=== PATIENT | female | born 1985 | race Two or more races ===

== ENCOUNTER → 2020-01-04 | Outpatient (REF) | payer OTHER | LOC: M SFHCLERA 20:17 | PROVIDERS: ATTEND Physician Assistant | DX: R31.9 Hematuria, unspecified (principal) | CPT/HCPCS: 81002; 81025; 87086; G0463 ==

== ENCOUNTER → 2020-01-16 | Outpatient (REF) | payer OTHER | LOC: M SFHCLERA 15:12 | PROVIDERS: ATTEND Nurse Practitioner Family | DX: R11.2 Nausea with vomiting, unspecified (principal) ==

== ENCOUNTER → 2020-01-27 | Outpatient (CLI) | payer OTHER, SELFPAY ==
[2020-01-27 13:21] LABS: HEMATOCRIT 38.6 % (36.0-47.0); HEMOGLOBIN 12.9 g/dl (12.0-15.5); MEAN CORPUSCULAR HEMOGLOBIN 28.2 pg (27.0-33.0); MEAN CORPUSCULAR HGB CONC 33.4 g/dl (32.0-36.5); MEAN CORPUSCULAR VOLUME 84.5 fl (80.0-96.0); PLATELET COUNT, AUTOMATED 331 10^3/uL (150-450); RED BLOOD COUNT 4.57 10^6/uL (4.00-5.40); WHITE BLOOD COUNT 7.8 10^3/uL (4.0-10.0)
[2020-01-27 13:37] LABS: FREE T4 1.05 NG/DL (0.76-1.46); THYROID STIMULATING HORMONE 0.796 uIU/ML (0.358-3.740)
[2020-01-27 15:24] LABS: CHLAMYDIA DNA AMPLIFICATION NEGATIVE (NEGATIVE); GC DNA AMPLIFICATION NEGATIVE (NEGATIVE)
[2020-01-28 08:25] LABS: RUBELLA IgG QUALITATIVE IMMUNE (IMMUNE)
[2020-01-28 08:26] LABS: HEPATITIS B SURFACE ANTIGEN NEGATIVE (NEGATIVE)
[2020-01-28 08:53] LABS: HEPATITIS C VIRUS ABY INDEX < 0.0 INDEX (<0.8)
[2020-01-28 08:54] LABS: HIV 1&2 SCREEN CENTAUR NEGATIVE (NEGATIVE)
== END ==
LOC: M PLALAB 11:14
PROVIDERS: ATTEND Advanced Practice Midwife
DX: Z34.91 Encounter for supervision of normal pregnancy, unspecified, first trimester (principal); Z3A.00 Weeks of gestation of pregnancy not specified

== ENCOUNTER 2020-03-15 19:31 | Emergency (ER) | payer OTHER, SELFPAY ==
[~2020-03-15] VITALS: Ht 157.5 cm; Wt 54.8 kg
[2020-03-15] MEDS ORDERED: ONDA-83 PO (19:46)
[2020-03-15] MEDS ORDERED: OMEP-221 PO (19:46)
[2020-03-15] MEDS ORDERED: PREN1TAB14 PO (19:46)
[2020-03-15] MEDS ORDERED: NS 1,000 ML IV ONE (20:00)
[2020-03-15 20:27] LABS: BASO # 0.1 10^3/uL (0.0-0.2); BASO % 0.6 % (0.0-1.0); EOS # 0.1 10^3/uL (0.0-0.5); EOS % 1.3 % (0.0-3.0); HEMATOCRIT 36.4 % (36.0-47.0); HEMOGLOBIN 12.4 g/dl (12.0-15.5); LYMPH # 3.2 10^3/uL (1.5-5.0); LYMPH % 30.6 % (24.0-44.0); MEAN CORPUSCULAR HEMOGLOBIN 28.8 pg (27.0-33.0); MEAN CORPUSCULAR HGB CONC 34.1 g/dl (32.0-36.5); MEAN CORPUSCULAR VOLUME 84.7 fl (80.0-96.0); MONO # 0.7 10^3/uL (0.0-0.8); MONO % 6.7 % (0.0-5.0); NEUTROPHILS # 6.4 10^3/uL (1.5-8.5); NEUTROPHILS % 60.4 % (36.0-66.0); PLATELET COUNT, AUTOMATED 326 10^3/uL (150-450); WHITE BLOOD COUNT 10.5 10^3/uL (4.0-10.0)
[2020-03-15] MEDS ORDERED: METOCLOPRAMIDE INJ 10MG/2ML VIAL (J2765 PER 1) IV ONE (20:45)
[2020-03-15 20:58] LABS: ALBUMIN 3.4 GM/DL (3.2-5.2); ALT/SGPT 14 U/L (12-78); BILIRUBIN,DIRECT < 0.1 MG/DL (0.0-0.2); BILIRUBIN,TOTAL 0.4 MG/DL (0.2-1.0); LIPASE 190 U/L (73-393); TOTAL PROTEIN 7.3 GM/DL (6.4-8.2)
[2020-03-15] MEDS ORDERED: DICL10TA PO (21:57)
[2020-03-15 22:01] VITALS: BP 110/57
--- NOTE | 2020-03-15 22:46 | REPVR ---
PROCEDURE INFORMATION: Exam: US Retroperitoneal Limited, Kidneys Exam date and time: 03/15/2020 10:02 PM Age: 34 years old Clinical indication: Abdominal pain; ; Additional info: Hematuria, nausea, vomiting TECHNIQUE: Imaging protocol: Real-time ultrasound of the retroperitoneum with image documentation. Examination was focused on the kidneys. COMPARISON: No relevant prior studies available. FINDINGS: Right kidney is grossly normal in size, echogenicity and contour, measuring 10.1 x 3.7 by 4.4 cm. There are no focal renal abnormalities. No evidence of hydronephrosis. The left kidney is grossly normal in size, echogenicity and contour, measuring 11.0 x 4.5 by 4.6 cm. There are no focal renal abnormalities. No evidence of hydronephrosis. Urinary bladder is incompletely distended. No large intrinsic or extrinsic filling defects within the urinary bladder. IMPRESSION: Unremarkable renal ultrasound. No focal renal abnormalities or hydronephrosis. Electronically signed by: Thaddeus Rob On 03/15/2020 22:46:12 PM
== END 2020-03-15 22:10 | disposition home or self-care (01) ==
LOC: M ED 19:31
DX: O21.9 Vomiting of pregnancy, unspecified (principal); Z3A.15 15 weeks gestation of pregnancy; O99.611 Diseases of the digestive system complicating pregnancy, first trimester; K21.9 Gastro-esophageal reflux disease without esophagitis; Z79.899 Other long term (current) drug therapy
CPT/HCPCS: 76775; 80047; 80076; 81001; 83690; 85025; 96361; 96374; 99284; J2765

== ENCOUNTER 2020-07-26 22:30 | Inpatient (IN) | payer OTHER ==
[~2020-07-26] VITALS: Ht 157.5 cm; Wt 65.7 kg
[~2020-07-26 22:30] MED LIST: DICL10TA PO; OMEP-221 PO; ONDA-83 PO; PREN1TAB14 PO
[2020-07-26 22:56] VITALS: BP 139/74
[2020-07-26] MEDS ORDERED: PENICILLIN G POTASSIUM IV 5 MU in D5W MINI-BAG PLUS 100 ML IV STA (23:30)
[2020-07-26] MEDS ORDERED: LACTATED RINGER'S 1000 ML IV STA (23:30)
[2020-07-26] MEDS ORDERED: LR 1,000 ML IV SCH ×2 (23:30)
[2020-07-26] MEDS ORDERED: MOM 30ML SUSPENSION UDC PO PRN (23:45)
[2020-07-26] MEDS ORDERED: SIMETHICONE 80 MG CHEW TAB PO PRN (23:45)
[2020-07-26] MEDS ORDERED: diphenhydrAMINE 25MG CAP PO PRN (23:45)
[2020-07-26] MEDS ORDERED: BUTORPHANOL 2 MG/ML INJ (J0595) IV PRN (23:45)
[2020-07-26] MEDS ORDERED: CALCIUM CARBONATE 500 MG CHEW U/D PO PRN (23:45)
[2020-07-26] MEDS ORDERED: PROMETHAZINE INJ 25 MG/ML VIAL (J2550) IV PRN (23:45)
[2020-07-26] MEDS ORDERED: ACETAMINOPHEN 500 MG TAB PO PRN (23:45)
[2020-07-26 23:48] LABS: BASO # 0.1 10^3/uL (0.0-0.2); BASO % 0.6 % (0.0-1.0); EOS # 0.1 10^3/uL (0.0-0.5); HEMATOCRIT 36.3 % (36.0-47.0); HEMOGLOBIN 11.6 g/dl (12.0-15.5); LYMPH # 2.4 10^3/uL (1.5-5.0); LYMPH % 26.4 % (24.0-44.0); MEAN CORPUSCULAR HEMOGLOBIN 27.4 pg (27.0-33.0); MEAN CORPUSCULAR VOLUME 85.8 fl (80.0-96.0); MONO # 0.7 10^3/uL (0.0-0.8); NEUTROPHILS # 5.7 10^3/uL (1.5-8.5); NEUTROPHILS % 63.1 % (36.0-66.0); PLATELET COUNT, AUTOMATED 281 10^3/uL (150-450); RED BLOOD COUNT 4.23 10^6/uL (4.00-5.40)
--- NOTE | 2020-07-26 23:54 | HPEPDOC ---
Obstetrical History & Physical General Date of Admission Jul 26, 2020 at 22:49 History of Present Illness Patient is a 35yo at 34.4wks by LMP c/w 1st trimester US. Patient had gush of clear fluid at 2200 and has been leaking since. Some mild cramps intermittently but no strong ctx. No VB. +FM. No headaches or change in vision. Chief Complaint: LOF, pre-term Information Provided By: Patient : 3 Term: 1 Pre-term: 1 Livin Care Care: Good Care Dating Final EDC: Sep 02, 2020 Final EDC by: LMP EGA at Admission: 34.4 Antepartum Course Height (inches): 62 Pre- weight (lbs.): 121 Admission Weight (lbs.): 140 Change in Weight (lbs.): 19 Past Medical History Past Obstetrical History : Past Obstetrical History: Multigravida Type of Delivery: Spontaneous Vaginal Del. 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 Past Medical History Medical History none Surgical History: Denies/None Family History Significant Family History: No pertinent family hx Social History Marital Status: Family situation: Spouse/partner home Psychosocial History: No pertinent psych hx * Smoker: non-smoker Alcohol: Denies Drugs: denies Abuse Violence Screening Have you been hit/kicked/slapp: No Have you been sexually assault: No Allergies Coded Allergies: No Known Allergies (Verified Allergy, Unknown, 03/15/20) Medications Scheduled Doxylamine Succinate/Vit B6 (Diclegis Dr 10-10 mg Tablet) 1 Each Tablet.dr, 2 TAB PO QPM Omeprazole (Omeprazole) 40 Mg Capsule.dr, 40 MG PO DAILY Ondansetron HCl (Ondansetron HCl) 4 Mg Tablet, 4 MG PO PRN Vits96/Iron Fum/Folic ( Tablet) 1 Each Tablet, 1 TAB PO DAILY Physical Examination Physical Examination GENERAL: Alert and oriented times three. BREAST: . ABDOMEN: Gravid and non-tender to touch. FETUS: Is vertex (VTX) by sterile vaginal examination (SVE), fetus is 3000 by Billy. HEART RATE: Regular rate and rhythm. LUNGS: Clear to auscultation (CTA). EXTREMITIES: No edema. Laboratory Data 24H LABS Laboratory Tests 2 07/26/20 23:00: CBC/BMP Urine Culture: No Growth Pertinent Laboratoy Data Blood Type: B+ RBC Antibody Screen: Negative HIV: Negative Hepatitis B: Negative Rapid Plasma Reagin: Nonreactive Rubella: Immune Varicella: Immune Chlamydia/Gonorrhea: Negative Group B Streptococcus: Positive Other Ultrasounds Information Per patient normal anatomy US. Steroid Therapy Steroid Therapy: No Vaginal Examination Dilation: 2cm Effacement: 70% Station: -2 Cervical Consistency: Soft Cervical Position: Middle Presentation: Cephalic presentation Assessment Heart Rate (FHR): 120 Variability: Moderate Accelerations: Positive Decelerations: None Tocometer Contractions: No Multi-drug resistant Organism: No history of MDRO Assessment/Plan Assessment Patient is a 35yo at 34.4wks by LMP c/w 1st trimester US. Admit for PPROM and expect delivery by . No need for delay of delivery due to EGA of 34wks by good dating. Pain management per patient preference, which was discussed with her. I discussed risks of with patient of failure with section, distress, bleeding, infection, , vaginal or perineal or neighboring organ tear. Currently, fetus is reassuring. GBS is positive by urine, will need for antibiotics. Will not augment or induce labor until 4hr completion of first dose of antibiotics. Plan Admit and orient. 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 Diet: clears. Group B Streptococcus (GBS) posititve and needs PCN treatment. Labs and intravenous (IV) per unit protocol. Counseled on Pitocin and induction of labor (IOL)/augmentation. Lactated Ringers (LR): Bolus 500 mL, then at 125 mL/hr. Anticipate normal spontaneous delivery (). C-S or operative delivery as appropriate. Pain management per patient choice. Stefania Ness MD Jul 26, 2020 23:54
[2020-07-27] VITALS (34 sets, daily range): BP systolic 92–131; BP diastolic 52–77
[2020-07-27] MEDS ORDERED: OXYTOCIN DRIP 30 UNITS in IV 1 EA IV SCH ×2 (03:30→10:58)
[2020-07-27] MEDS: PENICILLIN G POTASSIUM IV 2.5 MU in IV 1 EA IV SCH ×2 (04:10→07:24)
[2020-07-27] MEDS ORDERED: FENTANYL 2MCG/ML ROPIVACAINE 0.2% IN 0.9% NACL 100ML IVBAG As Ordered ONE (07:19)
[2020-07-27] MEDS ORDERED: FERROUS SULFATE 325MG TAB PO SCH (09:00)
[2020-07-27] MEDS ORDERED: PRENATAL VITAMINS CHEWABLE TABLET PO SCH (09:00)
[2020-07-27] MEDS ORDERED: ePHEDrine SULFATE 25 MG/5 ML(5MG/ML) SYRINGE IV PRN (09:30)
[2020-07-27] MEDS ORDERED: EPIDURAL COMMENT XX SCH (09:30)
[2020-07-27] MEDS ORDERED: ONDANSETRON 4MG/2ML VIAL IV PRN (09:30)
[2020-07-27] MEDS ORDERED: EPIDURAL/PCA KEYS XX PRN (09:30)
[2020-07-27] MEDS ORDERED: diphenhydrAMINE 50MG/ML VIAL (J1200) IV PRN (09:30)
[2020-07-27] MEDS ORDERED: NALOXONE INJ 0.4MG/1ML VIAL (J2310 PER 1MG) IV PRN (09:30)
[2020-07-27] MEDS ORDERED: REFRIGERATOR IV KEYS XX PRN (09:30)
[2020-07-27] MEDS ORDERED: LACTATED RINGER'S 1000 ML IV PRN (09:30)
[2020-07-27] MEDS ORDERED: FENTANYL/ROPIVACAINE/NACL BAG 100 ML EPIDURAL SCH (09:30)
--- NOTE | 2020-07-27 10:15 | IPNPDOC ---
Obstetrical Progress Note Date of Service Jul 27, 2020 Subjective Patient feeling painful ctx's therefore received epidural for pain control. Patient reporting pelvic pressure after epidural placement. Objective Vital Signs Date Time Temp Pulse Resp B/P (MAP) Pulse Ox O2 Delivery O2 Flow Rate FiO2 07/27/20 08:30 88 104/57 (73) 07/27/20 04:58 97.5 07/26/20 22:56 16 Assessment Heart Rate (FHR): 125 Variability: Moderate Accelerations: Positive Decelerations: None Heart Rate Tracing: Category I Tocometer Contractions: Yes Frequency: regular, every 1-3 min. Duration: greater than 60 seconds Sterile Vaginal Examination Dilation: 8 cm Effacement (%): 100% Station: 0 Cervical Consistency: Soft Cervical Position: Anterior Postion/Presentation: Cephalic presentation Assessment and Plan Status: Reassuring Group B Streptococcus: Positive (has received >2 doses of PCN) Anticipate: Vaginal Delivery Additional Comments 35yo at 34+5wks admitted for PPROM and has now progressed on maternal effort alone to 8/c/0 by RN exam at 0945. FHRT cat I. Plan for expectant . KULWINDER CHAMBERS DO Jul 27, 2020 10:15
[2020-07-27] MEDS ORDERED: DIBUCAINE 1% OINTMENT 30GM TOP PRN (11:00)
[2020-07-27] MEDS ORDERED: ACETAMINOPHEN 500 MG TAB PO PRN (11:00)
[2020-07-27] MEDS ORDERED: DOCUSATE SODIUM 100 MG CAP PO PRN (11:00)
[2020-07-27] MEDS ORDERED: ACETAMINOPHEN TAB 650MG DOSE (2X325MG) PO PRN (11:00)
[2020-07-27] MEDS ORDERED: IBUPROFEN 800 MG TAB PO PRN (11:00)
--- NOTE | 2020-07-27 11:23 | DNPDOC ---
[facility] Delivery Note Delivery Note DATE OF DELIVERY: [id number] PREDELIVERY DIAGNOSIS: 34+5/7 weeks' gestation and labor. POST DELIVERY DIAGNOSIS: Delivered. PROCEDURE: Spontaneous vaginal delivery FILLING HAULER WEAVING: Dr. Kulwinder Chambers ANESTHESIA: Epidural. ESTIMATED BLOOD LOSS: 100 mL. FINDINGS: 5 pound 11 ounce 2594g male , Score 9/9, nuchal cord times 1. DELIVERY SUMMARY: Patient is a 35-year-old 2 now para 1102 who was admitted to labor and delivery for rupture of membranes and subsequently progressed into spontaneous labor. Patient found to be c/c/+2 and ther efore prepped for delivery. Patient coached on pushing effort until spontaneous vaginal delivery. Presentation was OA with restitution to LOT with right shoulder anterior position. Anterior shoulder and body delivered without difficulty. Nuchal cord x1 delivered through. No meconium appreciated. Infant with spontaneous vigorous cry on delivery field therefore placed on maternal abd omen where was dried. Delayed cord clamping allowed for 30 seconds then clamped x2 and cut by FOB. taken to warmer by awaiting NICU team. Pitocin IV bolus initiated. Third stage spontaneous with intact placenta. Fundal massage revealed firm uterine tone and hemostasis. Inspection revealed no lacerations. Patient stable upon my leaving the room. transferred to NICU due to gestational age. EBL 100ml. KULWINDER CHAMBERS DO Jul 27, 2020 11:23
[2020-07-27] MEDS ORDERED: ONDANSETRON 4 MG ORAL DISINTEGRATING TAB PO PRN (13:45)
[2020-07-28 06:00] VITALS: BP 109/71
[2020-07-28] MEDS ORDERED: IBUP80TA PO (10:30)
[2020-07-28] MEDS ORDERED: ACET-683 PO (10:30)
[2020-07-28] MEDS ORDERED: DOCU100C16 PO (10:30)
--- NOTE | 2020-07-28 10:33 | IPNPDOC ---
Progress Note Date of Service: Jul 28, 2020 Day#: 1 Progress Note SUBJECT: Ms. Montgomery is a 35yo s/p at term and vaginal laceration and repair, doing well day # 1. She has been ambulating, voiding spontaneously without issue and tolerating regular diet. Breast feeding without issue. Reports lochia is like a normal period. Patient is ambulating well. Denies any pain. Voiding and stooling without difficulty. OBJECTIVE: VITAL SIGNS: Within normal limits, afebrile. Alert and oriented times three. Breath sounds clear to auscultation. Heart rate: Regular rate and rhythm, no murmurs, rubs or gallops. Abdomen: Fundus firm at U-2. Soft, NTTP. [Minimal] lochia. ASSESSMENT: Ms. Montgomery is a 35yo s/p at term and vaginal laceration and repair, doing well day # 1. Vitals within normal limits, afebrile, hemodynamically stable with no evidence of infection. PLAN: 1. Discharge to home today. 2. Tylenol and Motrin for pain. 3. Encourage breast feeding and ambulation. 4. Desres BTL, scheuling with myself for interval tubal 5. Routine PP visit in 6 weeks in clinic. 6. Discussed return precautions at length. VS, I&O, 24H, [facility] Vital Signs/I&O Vital Signs Date Time Temp Pulse Resp B/P (MAP) Pulse Ox O2 Delivery O2 Flow Rate FiO2 07/28/20 06:00 98.7 75 20 109/71 (84) 99 Room Air I&O- Last 24 Hours up to 6 AM 07/28/20 06:00 Intake Total 2625 ml Output Total 700 ml Balance 1925 ml Laboratory Data 24H LABS Laboratory Tests 2 07/27/20 11:11: Serology Scanned Report Hepatitis B Testing JAJA BEARD DO Jul 28, 2020 10:33
== END 2020-07-28 15:37 | disposition home or self-care (01) | DRG 807 ==
LOC: M LDO 22:30 → M LDI 22:49 → M OBS 07-27 13:39
PROVIDERS: ADMIT Obstetrics & Gynecology; ATTEND Obstetrics & Gynecology
PROC: 10E0XZZ Delivery of Products of Conception, External Approach (ICD-10-PCS; principal; 2020-07-27)
DX: O60.14X0 Preterm labor third trimester with preterm delivery third trimester, not applicable or unspecified (principal); Z37.0 Single live birth; Z3A.34 34 weeks gestation of pregnancy; O42.013 Preterm premature rupture of membranes, onset of labor within 24 hours of rupture, third trimester; O99.824 Streptococcus B carrier state complicating childbirth; Z79.899 Other long term (current) drug therapy; O69.81X0 Labor and delivery complicated by cord around neck, without compression, not applicable or unspecified

== ENCOUNTER 2020-09-01 03:44 | Emergency (ER) | payer OTHER ==
[~2020-09-01] VITALS: Ht 157.5 cm; Wt 57.9 kg
[~2020-09-01 03:44] MED LIST changes: +ACET-683 PO; +DOCU100C16 PO; +IBUP80TA PO
[2020-09-01] MEDS ORDERED: CYCL5TAB PO (03:52)
[2020-09-01 04:26] LABS: URINE PREG TEST NEGATIVE (NEGATIVE)
[2020-09-01] MEDS ORDERED: ACETAMINOPHEN 325 MG TAB As Ordered ONE (04:38)
[2020-09-01] MEDS ORDERED: NS 1,000 ML IV ONE (04:45)
[2020-09-01] MEDS ORDERED: ACETAMINOPHEN 325 MG TAB PO ONE (04:45)
[2020-09-01] MEDS ORDERED: IBUPROFEN 600MG TAB PO ONE (04:45)
[2020-09-01 04:54] LABS: BASO % 0.4 % (0.0-1.0); EOS # 0.2 10^3/uL (0.0-0.5); EOS % 1.5 % (0.0-3.0); HEMATOCRIT 37.9 % (36.0-47.0); HEMOGLOBIN 12.1 g/dl (12.0-15.5); LYMPH # 2.3 10^3/uL (1.5-5.0); LYMPH % 21.1 % (24.0-44.0); MEAN CORPUSCULAR HEMOGLOBIN 26.7 pg (27.0-33.0); MEAN CORPUSCULAR HGB CONC 31.9 g/dl (32.0-36.5); MEAN CORPUSCULAR VOLUME 83.5 fl (80.0-96.0); MONO # 0.7 10^3/uL (0.0-0.8); MONO % 6.5 % (0.0-5.0); NEUTROPHILS # 7.7 10^3/uL (1.5-8.5); PLATELET COUNT, AUTOMATED 439 10^3/uL (150-450); RED BLOOD COUNT 4.54 10^6/uL (4.00-5.40); WHITE BLOOD COUNT 10.9 10^3/uL (4.0-10.0)
[2020-09-01 05:02] LABS: ALT/SGPT 48 U/L (12-78); BILIRUBIN,DIRECT < 0.1 MG/DL (0.0-0.2); BILIRUBIN,TOTAL 0.3 MG/DL (0.2-1.0); BLOOD UREA NITROGEN 6 MG/DL (7-18); CALCIUM LEVEL 8.7 MG/DL (8.5-10.1); CARBON DIOXIDE LEVEL 26 MEQ/L (21-32); CHLORIDE LEVEL 108 MEQ/L (98-107); CREATININE FOR GFR 0.73 MG/DL (0.55-1.30); GLOMERULAR FILTRATION RATE > 60.0 (>60); GLUCOSE, FASTING 97 MG/DL (70-100); LIPASE 90 U/L (73-393); POTASSIUM SERUM 4.3 MEQ/L (3.5-5.1); SODIUM LEVEL 142 MEQ/L (136-145); TOTAL PROTEIN 6.9 GM/DL (6.4-8.2)
[2020-09-01] MEDS ORDERED: cefTRIAXone SOD 2 GM in D5W MINI-BAG PLUS 50 ML IV ONE (05:15)
--- NOTE | 2020-09-01 05:49 | REPVR ---
PROCEDURE INFORMATION: Exam: XR Chest, 2 Views Exam date and time: 09/01/2020 5:10 AM Age: 35 years old Clinical indication: Other: Right chest pain TECHNIQUE: Imaging protocol: XR of the chest Views: 2 views. COMPARISON: No relevant prior studies available. FINDINGS: Lungs: Unremarkable. No consolidation. Pleural space: Unremarkable. No pleural effusion. No pneumothorax. Heart/Mediastinum: Unremarkable. No cardiomegaly. Bones/joints: Unremarkable. IMPRESSION: No acute abnormalities are identified. Electronically signed by: Mike Pryor On 09/01/2020 05:48:54 AM
[2020-09-01] MEDS ORDERED: PIPERACILLIN/TAZOBACTAM SOD 4.5 GM in D5W MINI-BAG PLUS 50 ML IV ONE (06:15)
--- NOTE | 2020-09-01 06:47 | REPVR ---
PROCEDURE INFORMATION: Exam: CT Abdomen And Pelvis Without Contrast Exam date and time: 09/01/2020 5:13 AM Age: 35 years old Clinical indication: Abdominal pain; Flank; Right; Additional info: Rule out right kidney stone TECHNIQUE: Imaging protocol: Computed tomography of the abdomen and pelvis without contrast. Radiation optimization: All CT scans at this facility use at least one of these dose optimization techniques: automated exposure control; mA and/or kV adjustment per patient size (includes targeted exams where dose is matched to clinical indication); or iterative reconstruction. COMPARISON: RENAL US 03/15/2020 9:28 PM FINDINGS: Lungs: Right lower lobe subsegmental atelectasis. No consolidation. Heart: Cardiac size is normal. No pericardial or pleural effusions. Liver: Unremarkable. No mass. Gallbladder and bile ducts: No calcified gallstones. No ductal dilatation. Pancreas: Unremarkable. No ductal dilatation. Spleen: Unremarkable. No splenomegaly. Adrenals: Unremarkable. No mass. Kidneys and ureters: Mild fullness of the right renal pelvis. No significant hydronephrosis. No nephrolithiasis or perinephric stranding. No definite ureteral calculi. Stomach and bowel: Stomach is relatively decompressed. No evidence of bowel obstruction. Mild segmental small bowel thickening within the mid abdomen. Fluid-filled small bowel loops and scattered air-fluid levels. Moderate amount of gas and fecal material within colon. Appendix: Hyperdense material within the appendix. No appendicitis. Intraperitoneal space: Moderate amount of complex free fluid/blood within the pelvis. No free air. Vasculature: Unremarkable. No abdominal aortic aneurysm. Lymph nodes: There is diffuse mesenteric infiltration with hazy fat stranding and multiple small and mildly prominent mesenteric lymph nodes, consistent with nonspecific mesenteritis. Urinary bladder: Mild diffuse thickening of the bladder wall. No bladder calculi. Reproductive: Bulky appearance of the uterus and fullness of the ovaries. Bones/joints: Bones are intact. No acute fracture. Soft tissues: Small fat containing umbilical hernia. IMPRESSION: 1. Mild fullness of the right renal pelvis without significant hydronephrosis. No evidence of nephrolithiasis and no definite obstructing ureteral calculi. Mild thickening of the bladder wall. No bladder calculi. Recommend correlation with urinalysis for possible cystitis and ascending urinary tract infection. 2. Moderate amount of complex free fluid/blood within the pelvis. Bulky appearance of the uterus and fullness of the ovaries. Recommend pelvic ultrasound to evaluate the ovaries for possible ruptured hemorrhagic cyst. 3. Diffuse mesenteric infiltration with hazy fat stranding and multiple small and mildly prominent mesenteric lymph nodes. This is consistent with nonspecific mesenteritis and may be reactive/inflammatory, infectious, or infiltrative. There is segmental thickening of small bowel loops which may represent enteritis or secondary inflammation. No bowel obstruction. Recommend short-term follow-up contrast enhanced CT to assess for resolution. Findings were discussed with AZAEL STARKEY at 09/01/2020 6:07 AM EDT. Electronically signed by: Mike Pryor On 09/01/2020 06:47:18 AM
--- NOTE | 2020-09-01 07:45 | REPVR ---
PROCEDURE INFORMATION: Exam: US Pelvis Complete, Transabdominal and US Duplex Artery or Vein, Ovaries, Limited Exam date and time: 09/01/2020 7:12 AM Age: 35 years old Clinical indication: Pelvic pain; Additional info: Rule out ovarian cyst TECHNIQUE: Imaging protocol: Real-time transabdominal pelvic ultrasound with image documentation. Real-time duplex ultrasound scan of the arterial or venous flow of the ovaries with B-mode, color Doppler flow and spectral waveform analysis. Complete Pelvis, Limited Duplex. COMPARISON: CT ABD PELVIS W/O CONTRAST 09/01/2020 5:24 AM FINDINGS: Uterus/cervix: Uterus is prominent in size measuring 10.9 x 3.6 x 6.6 cm. No myometrial mass. Endometrial stripe is thin measuring 3-4 mm. Cervix is unremarkable. Right adnexa: Right ovary measures 4.5 x 1.7 x 2.7 cm and contains a few small follicles as well as a 1.6 x 2.1 x 2.0 cm complex/hemorrhagic cyst. Duplex blood flow is present within the right ovary with color Doppler and arterial waveforms. RI 0.55. No evidence of torsion. Left adnexa: Left ovary measures 2.8 x 2.4 x 3.3 cm and is unremarkable containing small follicles. Duplex blood flow is present within the left ovary with color Doppler and arterial waveforms. RI 0.53. No evidence of torsion. Free fluid: Trace free fluid. Bladder: Urinary bladder is unremarkable. IMPRESSION: 1. Uterus is prominent in size without discrete mass. 2. Trace free fluid. 3. Small complex/hemorrhagic right ovarian cyst. Small bilateral ovarian follicles. No evidence of ovarian torsion. Electronically signed by: Mike Pryor On 09/01/2020 07:45:43 AM
[2020-09-01] MEDS ORDERED: IBUP80TA PO (07:50)
[2020-09-01] MEDS ORDERED: OMEP-221 PO (07:50)
[2020-09-01] MEDS ORDERED: MAGN400T3 PO (07:50)
[2020-09-01 09:53] VITALS: BP 112/66
--- NOTE | 2020-09-01 09:53 | CR.PDOC ---
General Date of Consultation: Sep 01, 2020 Referring Provider: Greg Rodriguez M.D. Attending Physician: RUBEN MANCIA MD Consultation REASON FOR CONSULTATION/CHIEF COMPLAINT: Abdominal pain HISTORY OF PRESENT ILLNESS: 35 yo who recently had an uncomplicated vaginal delivery of a healthy infant on 07/29/2020 who presented to the ED with abdominal/pelvic discomfort. She otherwise does not have any significant past medical history. She reports no recent N/V/fevers/diarrhea/sick contacts/chest pain/palpitations/peripheral edema/dysuria/reina hematuria or dyspnea. In the ED she is hemodynamically stable, afebrile and breathing comfortably on room air with mild low abdominal discomfort on palpation without any masses, rebound or guarding. Studies were notable for WBC 10.9, Hgb 12.1, platelets 439, na 142, k 4.3, Cr 0.73. She had a CT A/P that showed mild bladder wall thickening c/f potential cystitis, as well as complex free fluid/blood within the pelvis and bulky appearance of the uterus and fullness of the ovaries, while a follow up pelvic US showed a uterus is prominent in size without discrete mass, trace free fluid, a small complex/hemorrhagic right ovarian cyst, small bilateral ovarian follicles and no evidence of ovarian torsion. 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 Medicine was then consulted for evaluation. On my evaluation her pain appears to be MSK in nature and exacerbated by twisting, deep breaths and movement and is on her R chest wall to abdomen border. She reports that it started yesterday after she used a stomach shrinking belt and very tight tights. I have suggested she stops wearing them for now, put some warm packs and take tylenol when its severe and follow up with her PCP and inspector dials for routine follow up. ALLERGIES: Please see below. HOME MEDICATIONS: Please see below. PAST MEDICAL HISTORY: None PAST SURGICAL HISTORY: None FAMILY HISTORY: Non contributory SOCIAL HISTORY: Non smoker No alcohol No illicit drug use REVIEW OF SYSTEMS: 10 point ROS was performed and was otherwise negative except as mentioned in the HPI above. PHYSICAL EXAMINATION: VITAL SIGNS: Please see below. GENERAL APPEARANCE: NAD HEENT: NCAT, PERRLA, EOMI, MMM RESPIRATORY: CTAB CARDIOVASCULAR: RRR, no mrg ABDOMEN: Normoactive sounds, soft, non distended, negative oliva's no flank pa in on percussion, however with R lower chest wall and upper abdominal wall pain on deep palpation and on twisting. EXTREMITIES: WWP, no edema NEUROLOGICAL: CN3-12 intact, speech clear, moving all extremities PSYCHIATRIC: AOx3 LABORATORY DATA: Please see below. Discussed above Imaging: Pelvic ultrasound: FINDINGS: Uterus/cervix: Uterus is prominent in size measuring 10.9 x 3.6 x 6.6 cm. No myometrial mass. Endometrial stripe is thin measuring 3-4 mm. Cervix is unremarkable. Right adnexa: Right ovary measures 4.5 x 1.7 x 2.7 cm and contains a few small follicles as well as a 1.6 x 2.1 x 2.0 cm complex/hemorrhagic cyst. Duplex blood flow is present within the right ovary with color Doppler and arterial waveforms. RI 0.55. No evidence of torsion. Left adnexa: Left ovary measures 2.8 x 2.4 x 3.3 cm and is unremarkable containing small follicles. Duplex blood flow is present within the left ovary with color Doppler and arterial waveforms. RI 0.53. No evidence of torsion. Free fluid: Trace free fluid. Bladder: Urinary bladder is unremarkable. IMPRESSION: 1. Uterus is prominent in size without discrete mass. 2. Trace free fluid. 3. Small complex/hemorrhagic right ovarian cyst. Small bilateral ovarian follicles. No evidence of ovarian torsion. CT A/P: 1. Mild fullness of the right renal pelvis without significant hydronephrosis. No evidence of nephrolithiasis and no definite obstructing ureteral calculi. Mild thickening of the bladder wall. No bladder calculi. Recommend correlation with urinalysis for possible cystitis and ascending urinary tract infection. 2. Moderate amount of complex free fluid/blood within the pelvis. Bulky appearance of the uterus and fullness of the ovaries. Recommend pelvic ultrasound to evaluate the ovaries for possible ruptured hemorrhagic cyst. 3. Diffuse mesenteric infiltration with hazy fat stranding and multiple small and mildly prominent mesenteric lymph nodes. This is consistent with nonspecific mesenteritis and may be reactive/inflammatory, infectious, or infiltrative. There is segmental thickening of small bowel loops which may represent enteritis or secondary inflammation. No bowel obstruction. Recommend short-term follow-up contrast enhanced CT to assess for resolution. CXR: No acute abnormalities are identified. ASSESSMENT/PLAN: 35 yo W with with asymptomatic 1+ bacteriuria with negative nitrites and no urinary symptoms, here with R sided chest wall to abdominal wall pain in the se tting of wearing very tight waist belts and tights. Plan: R sided pain 2/2 to tight belts and tights. 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 Vital Signs/I&O Vital Signs Date Time Temp Pulse Resp B/P (MAP) Pulse Ox O2 Delivery O2 Flow Rate FiO2 09/01/20 08:07 97.8 82 16 106/58 (74) 99 Room Air I&O- Last 24 Hours up to 6 AM 09/01/20 06:00 Intake Total 1050 ml Balance 1050 ml Laboratory Data Labs 24H Laboratory Tests 2 09/01/20 04:01: Immature Granulocyte % (Auto) 0.5, Neutrophils (%) (Auto) 70.0H, Lymphocytes (%) (Auto) 21.1L, Monocytes (%) (Auto) 6.5H, Eosinophils (%) (Auto) 1.5, Basophils (%) (Auto) 0.4, Neutrophils # (Auto) 7.7, Lymphocytes # (Auto) 2.3, Monocytes # (Auto) 0.7, Eosinophils # (Auto) 0.2, Basophils # (Auto) 0.0, Nucleated Red Blood Cells % (auto) 0.0, Urine Color STRAW, Urine Appearance HAZY, Urine pH 7.0, Urine Specific [place] 1.000L, Urine Protein NEGATIVE, Urine Glucose (UA) NEGATIVE, Urine Ketones NEGATIVE, Urine Blood 3+H, Urine Nitrite NEGATIVE, Urine Bilirubin NEGATIVE, Urine Urobilinogen 0.2, Urine Leukocyte Esterase 2+H, Urine WBC (Auto) 14H, Urine RBC (Auto) 5H, Urine Hyaline Casts (Auto) 0, Urine Bacteria (Auto) 1+H, Urine Squamous Epithelial Cells 1, Urine Sperm (Auto) , Urine Test NEGATIVE, Anion Gap 8, Glomerular Filtration Rate > 60.0, Calcium Level 8.7, Total Bilirubin 0.3, Direct Bilirubin < 0.1, Aspartate Amino Transf (AST/SGOT) 25, Alanine Aminotransferase (ALT/SGPT) 48, Alkaline Phosphatase 91, Total Protein 6.9, Albumin 3.0L, Albumin/Globulin Ratio 0.8L, Lipase 90 09/01/20 04:41: Lactic Acid Level 0.5 CBC/BMP Laboratory Tests 09/01/20 04:01 Microbiology Microbiology 09/01/20 Urine Culture, Received Pending Allergies Coded Allergies: No Known Allergies (Verified Allergy, Unknown, 03/15/20) Home Medications Scheduled Magnesium Oxide (Magnesium Oxide) 400 Mg Tablet, 400 MG PO QHS, (Reported) Omeprazole (Omeprazole) 40 Mg Capsule.dr, 40 MG PO DAILY, (Reported) Vits96/Iron Fum/Folic ( Tablet) 1 Each Tablet, 1 TAB PO DAILY, (Reported) Scheduled PRN Cyclobenzaprine HCl (Cyclobenzaprine HCl) 5 Mg Tablet, 5 MG PO TID PRN for MUSCLE SPASMS, (Reported) Ibuprofen (Ibuprofen) 800 Mg Tablet, 800 MG PO Q8H PRN for PAIN, (Reported) RUBEN MANCIA MD Sep 01, 2020 09:33
--- NOTE | 2020-09-04 14:27 | ER ---
DATE OF CONSULTATION: 09/01/2020 I received a phone call from the emergency department (ED) regarding Ulises. She is a 35-year-old female who is 5 weeks . Presents overnight with right-sided abdominal pain, mid abdominal pain. She had a spontaneous vaginal delivery at 34-5/7 of gestation with epidural in place 5 pounds 11 ounces. Uneventful delivery and course. Over the next while, she had some episodes of bleeding, which stopped and resolved 4 weeks . Then she started to bleed again intermittently with uterine contractions at 4 weeks . Her abdominal pain started overnight, and several nights ago she had a fever of 101.0. She did not take any aspirin or ibuprofen or anything for her fever, and it just lasted a short period of time. She has no issues with bowel movements, voiding, or motion, but she says that she has some diffuse abdominal pain, mid epigastrium, which she did take some ibuprofen for over the last 24 and seemed to help the issues, but when she stopped they returned again. Her vital signs here in emergency: Blood pressure 112/66, respirations 16, pulse 69, temperature 97.0, and oxygen saturations are 98 on room air. She had lab work done, and her white count is 10.9, which is respectable for week day #5, hemoglobin 12.1, hematocrit 37.9, and platelets 439. Her differential was within normal limits. In her chemistry, she had a basic metabolic profile. Her chlorides were a little high at 108, but the rest of the examination is unremarkable. She did have a urine, which showed that it was 1000, pH of 7. Had some 3+ blood, which is also normal for . Patient's leukocyte esterase was 2+, bacteria 1+. Ketones were negative. The possibility of a urinary tract infection may be entertained but does not seem to be associated with the issue that she is having presently. She had a urine culture, which is pending, and we expect to get the results back in 48 hours. She had imaging done, and her pelvic ultrasound indicated a normal involuting uterus 5 weeks . Endometrial stripe was within normal limits. The right ovary was normal. The left ovary was normal. There was no evidence of decreased flow. Both contained small follicles. Trace free fluid in the cul-de-sac, which was normal for a patient. No evidence of any pelvic pathology outside of normal involution for . She had a CT scan, which indicated no appendicitis. There was some diffuse mesenteric infiltration, which I am not quite sure has any correlation with anything, and prominent mesenteric lymph nodes, again nonspecific for the reproductive group. The pelvic structures were within normal limits. She had a bit of hydronephrosis, which was normal for a patient, and pancreas, spleen, adrenals, kidneys, and ureters were all within normal limits. She had a chest x-ray, which was normal. No mediastinal shift and normal pleura. PHYSICAL EXAMINATION: She is only in mild distress when she moves from one side to the other, especially in right side of her abdomen, deflected down toward the round ligament and the sciatic nerve area. The uterus itself was nontender to palpation. It is in normal involution status. The lochia is normal for . No foul odor or discharge. Perineum is healing and is virtually normal. No lymphadenopathy in the groin area. Did not finding any significant pathology as far as the pelvic area is concerned. Do not think that the ultrasound and CT scan with the mesenteric adenitis is of significance in relation to a patient who is 5 weeks . Patient has an appointment with Lorena Gregg on Friday, September 04, and she is encouraged to keep that. From a gynecologic and obstetric point of view, patient could be discharged on her own recognizance. Patient expressed understanding of plan of care. LUCITA
== END 2020-09-01 10:30 | disposition home or self-care (01) ==
LOC: M ED 03:44 → CANBEDREQ 09:20 → M ED 10:30
DX: O99.893 Other specified diseases and conditions complicating puerperium (principal); I88.0 Nonspecific mesenteric lymphadenitis; N83.201 Unspecified ovarian cyst, right side; Z79.899 Other long term (current) drug therapy
CPT/HCPCS: 71046; 74176; 76856; 80048; 80076; 81001; 83605; 83690; 84703; 85025; 87086; 93976; 96365; 96367; 99284; J0696; J2543

== ENCOUNTER → 2020-10-05 | Outpatient (CLI) | payer OTHER ==
[~2020-10-05] MED LIST changes: +CYCL5TAB PO; +GASTROGRAFIN SOLUTION 30ML (Q9963) As Ordered ONE; +ISOVUE-370 76% 100ML VIAL As Ordered ONE; +MAGN400T3 PO
--- NOTE | 2020-10-05 14:47 | REP ---
INDICATION: RUQ/PERIUMBILICAL PAIN FILE ROOM. Eight weeks with right upper quadrant periumbilical pain. CT follow-up had been recommended. COMPARISON: Comparison CT study of the abdomen and pelvis September 01, 2020.. TECHNIQUE: Helical scanning is acquired and 3 mm axial images re-formatted. Coronal and sagittal MPR images are generated. The CT contrast enhancement dose is 100 mL of intravenous Isovue 370. FINDINGS: Digital preliminary household assistant radiograph demonstrates gaseous distention of a loop of jejunum and a portion of the transverse colon in the central abdomen question ileus. The lung bases are clear on axial CT images. No pleural effusion or upper abdominal ascites. The liver and the spleen are normal in size homogeneous in texture. No abnormality is noted in the gallbladder or the pancreas. Normal adrenal glands are seen bilaterally. Kidneys enhance symmetrically and are morphologically intact. No retroperitoneal mass or adenopathy is seen. Pelvic CT images show mildly prominent sized uterus. Its dimensions are 9.8 x 4.4 by 7.1 cm. No focal uterine mass lesion is seen. Normal ovaries are seen bilaterally. No free fluid is seen. The previously noted mesenteric fat infiltration or edema is resolved. Orally administered contrast is seen opacifying the distal small bowel and colon. There is some mural thickening in the descending colon and splenic flexure region question enterocolitis. Air-fluid levels are noted in the large bowel. No small bowel obstructive lesion is seen. Normal size mesenteric lymph nodes are noted. A noninflamed normal appendix is seen extending into the right adnexa.2 there is no evidence of free air or free peritoneal fluid. IMPRESSION: Moderate mural thickening affecting the descending colon question enterocolitis. Mild gaseous distention of a loop of jejunum in portion of the transverse colon. No obstructive lesion seen. No evidence of free fluid. Previously noted mesenteric infiltration has resolved. Normal size mesenteric lymph nodes. Normal appendix. <Electronically signed by Gilberto Leslie > 10/05/20 [id number]
== END ==
LOC: M RAD 12:36
PROVIDERS: ATTEND Nurse Practitioner Primary Care
DX: R10.33 Periumbilical pain (principal)